=== PATIENT | female | born 1980 | race Caucasian/White ===

== ENCOUNTER 2019-02-06 09:24 | Emergency (ER) | payer OTHER ==
[~2019-02-06] VITALS: Ht 165.1 cm; Wt 63.5 kg
[2019-02-06 09:42] VITALS: BP 147/103
== END 2019-02-06 10:59 | disposition home or self-care (01) ==
LOC: ER 09:24
DX: Z88.1 Allergy status to other antibiotic agents (principal); O20.0 Threatened abortion; Z98.890 Other specified postprocedural states; Z3A.01 Less than 8 weeks gestation of pregnancy

== ENCOUNTER → 2020-02-29 | Outpatient (CLI) | payer OTHER | LOC: ULTRA 11:52 | PROVIDERS: ATTEND Nurse Practitioner | DX: O09.511 Supervision of elderly primigravida, first trimester (principal); O20.9 Hemorrhage in early pregnancy, unspecified; Z3A.09 9 weeks gestation of pregnancy ==